=== PATIENT | male | born 1960 | race Two or more races ===

== ENCOUNTER 2017-07-16 20:36 | Observation (INO) | payer OTHER ==
[~2017-07-16] VITALS: Ht 157.5 cm; Wt 89.6 kg
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
[2017-07-16 20:47] LABS: BILIRUBIN URINE NEGATIVE (NEGATIVE); BLOOD URINE NEGATIVE /UL (NEGATIVE); COLOR URINE YELLOW (YELLOW); GLUCOSE URINE NEGATIVE (NEGATIVE); KETONE URINE NEGATIVE (NEGATIVE); LEUKOCYTES URINE NEGATIVE /UL (NEGATIVE); NITRITE URINE NEGATIVE (NEGATIVE); PROTEIN URINE 30 mg/dL (NEGATIVE); TURBIDITY URINE CLEAR (CLEAR); UROBILINOGEN URINE 1 mg/dL (NORMAL)
[2017-07-16 20:55] LABS: BASOPHIL % 0.4 %; EOSINOPHIL # 0.2 K/uL (0.0-0.5); EOSINOPHIL % 2.5 %; HEMATOCRIT 52.8 % (37.0-53.0); HEMOGLOBIN 17.8 g/dL (12.0-17.0); IMMATURE GRANULOCYTE % 0.2 %; LYMPHOCYTE # 1.8 K/uL (0.8-4.0); LYMPHOCYTE % 20.5 %; MCH 32.4 pg (27.0-34.0); MCHC 33.7 gm/dL (32.0-36.5); MCV 96.2 fl (83.0-98.0); MONOCYTE # 0.8 K/uL (0.0-1.0); MONOCYTE % 9.3 %; MPV 9.1 fl (9.4-12.4); NEUTROPHIL % 67.1 %; NRBC % 0.3 /100WBC (0-0.00); PLATELET COUNT 177 K/uL (150-450); RBC 5.49 M/uL (4.00-6.00); RDW-CV 14.6 % (11.9-14.6); WBC 8.9 K/uL (4.0-11.0)
[2017-07-16 20:56] LABS: BACTERIA URINE NEGATIVE (NEGATIVE); EPITHELIAL URINE 0-2 #/HPF (NEGATIVE); RBC URINE NEGATIVE #/HPF (NEGATIVE); WBC URINE 0-2 #/HPF (NEGATIVE)
[2017-07-16 21:04] LABS: PCO2 61 mmHg (35-45)
[2017-07-16 21:05] LABS: BICARBONATE 33.4 mmol/L (18.0-23.0); INR - (THERAPEUTIC) 1.26 (0.92-1.07); PO2 24 mmHg (80-90); PROTIME 13.3 SECONDS (9.8-11.4); PTT 28 SECONDS (25-32)
[2017-07-16 21:06] LABS: POTASSIUM 5.9 mEq/L (3.7-5.1); SODIUM 134 mEq/L (135-145)
[2017-07-16 21:08] LABS: ANION GAP 6.9 (10.0-19.0); BLOOD UREA NITROGEN 32 mg/dL (6-24); CHLORIDE 98 mMol/L (96-110); CREATININE 1.6 mg/dL (0.6-1.3)
[2017-07-16 22:18] LABS: ALBUMIN 3.3 gm/dL (3.5-5.0); ANION GAP 10.9 (10.0-19.0); CALCIUM 8.7 mg/dL (8.5-10.5); CREATININE 1.6 mg/dL (0.6-1.3); TOTAL BILIRUBIN 1.5 mg/dL (0.0-1.5); TOTAL PROTEIN 6.8 g/dL (6.0-8.4)
[2017-07-16 22:19] LABS: POTASSIUM 5.9 mMol/L (3.7-5.1)
[2017-07-16] MEDS ORDERED: PRINIVIL (ZESTRI5 MG PO (23:24)
[2017-07-16] MEDS ORDERED: ALDACTONE100 MG PO (23:25)
[2017-07-16] MEDS ORDERED: COREG 3.1253.125 MG PO (23:25)
[2017-07-16] MEDS ORDERED: LASIX80 MG PO (23:26)
[2017-07-16] MEDS ORDERED: DUONEB INH (23:30)
[2017-07-17 01:54] LABS: ANION GAP 9.3 (10.0-19.0); CALCIUM 8.7 mg/dL (8.5-10.5); CREATININE 1.4 mg/dL (0.6-1.3)
[2017-07-17 01:55] LABS: POTASSIUM 4.3 mMol/L (3.7-5.1)
[2017-07-17 04:18] LABS: ALBUMIN 3.2 gm/dL (3.5-5.0); ANION GAP 8.4 (10.0-19.0); CALCIUM 8.5 mg/dL (8.5-10.5); CREATININE 1.3 mg/dL (0.6-1.3); POTASSIUM 4.4 mMol/L (3.7-5.1); TOTAL BILIRUBIN 1.7 mg/dL (0.0-1.5); TOTAL PROTEIN 6.5 g/dL (6.0-8.4)
[2017-07-17 08:10] LABS: HEMOGLOBIN 17.1 g/dL (12.0-17.0); MCH 31.5 pg (27.0-34.0); MCHC 32.3 gm/dL (32.0-36.5); MCV 97.8 fl (83.0-98.0); MPV 8.8 fl (9.4-12.4); RBC 5.42 M/uL (4.00-6.00); RDW-CV 14.7 % (11.9-14.6); WBC 7.5 K/uL (4.0-11.0)
[2017-07-17 08:30] LABS: ANION GAP 10.6 (10.0-19.0); CALCIUM 8.6 mg/dL (8.5-10.5); CREATININE 1.2 mg/dL (0.6-1.3); POTASSIUM 4.6 mMol/L (3.7-5.1)
== END 2017-07-17 17:00 | disposition disaster alternative care site (69) ==
LOC: GACC 20:36 → GMSU 22:31
PROVIDERS: Emergency Medicine; Internal Medicine; ADMIT Surgery
DX: S50.01XA Contusion of right elbow, initial encounter (principal); I95.9 Hypotension, unspecified; E87.6 Hypokalemia; K70.9 Alcoholic liver disease, unspecified; R18.8 Other ascites; J44.9 Chronic obstructive pulmonary disease, unspecified; N17.9 Acute kidney failure, unspecified; V49.9XXA Car occupant (driver) (passenger) injured in unspecified traffic accident, initial encounter; Y93.I9 Activity, other involving external motion
CPT/HCPCS: G0480; J0610; J1644; J2270; J7030; J7040; Q9967

== ENCOUNTER → 2017-07-16 | Outpatient (CLI) | payer OTHER ==
[~2017-07-16] MED LIST: ALDACTONE100 MG PO; COREG 3.1253.125 MG PO; DUONEB INH; LASIX80 MG PO; PRINIVIL (ZESTRI5 MG PO
== END | disposition disaster alternative care site (69) ==
LOC: GAMB 19:50
DX: S27.0XXA Traumatic pneumothorax, initial encounter (principal); S20.20XA Contusion of thorax, unspecified, initial encounter; I95.9 Hypotension, unspecified; E86.1 Hypovolemia; R07.82 Intercostal pain; V59.9XXA Occupant (driver) (passenger) of pick-up truck or van injured in unspecified traffic accident, initial encounter